=== PATIENT | male | born 1950 | race Caucasian/White ===

== ENCOUNTER 2019-06-23 06:26 | Day surgery (SDC) | payer BC ==
[~2019-06-23 06:26] MED LIST: Buffered Lidocaine 1% SYRIN* 1 ML/SYRINGE INTRADERM ONE; Famotidine IV* 10 MG/ML 2 ML (20 mg) IV ONE; Lactated Ringers 1000 ML Bag* 1,000 ML IV SCH
[2019-06-23] MEDS ORDERED: Famotidine IV* 10 MG/ML 2 ML (20 mg) ONE (07:55)
[2019-06-23] MEDS ORDERED: Buffered Lidocaine 1% SYRIN* 1 ML/SYRINGE INTRADERM ONE (07:55)
[2019-06-23] MEDS ORDERED: ceFAZolin 2 GM in NS PREMIX(*) 2 GM/100 ML BAG IVPB ONE (07:56)
[2019-06-23] MEDS ORDERED: Ketorolac INJ* 30 MG/ML 1 ML VIAL ONE (08:27)
[2019-06-23] MEDS ORDERED: Ondansetron INJ* 2 MG/ML VIAL ONE (08:27)
[2019-06-23] MEDS ORDERED: Midazolam* 1 MG/ML 5 ML VIAL (5 MG) ONE (08:27)
[2019-06-23] MEDS ORDERED: Rocuronium* 10 MG/ML VIAL ONE (08:27)
[2019-06-23] MEDS ORDERED: Propofol* 10 MG/ML 20 ML BTL ONE (08:27)
[2019-06-23] MEDS ORDERED: Lidocaine 2% PF * 5 ML VIAL ONE (08:27)
[2019-06-23] MEDS ORDERED: fentaNYL* 50 MCG/ML 5 ML VIAL (250 MCG VIAL) ONE (08:27)
[2019-06-23] MEDS ORDERED: Dexamethasone IV* 4 MG/ML 1 ML (4 MG) ONE (08:27)
[2019-06-23] MEDS ORDERED: KETAMINE HCL* 50 MG/ML 10 ML VIAL ONE (08:27)
[2019-06-23] MEDS ORDERED: Bupivacaine 0.5%* 50 ML MDV VIAL ONE (08:49)
[2019-06-23] MEDS ORDERED: fentaNYL* 50 MCG/ML 2 ML VIAL (100 MCG VIAL) IV PRN (09:00)
[2019-06-23] MEDS ORDERED: Ondansetron INJ* 2 MG/ML VIAL IV PRN (09:00)
[2019-06-23] MEDS ORDERED: oxyCODONE/Acetamin 5/325 MG* TAB PO PRN (09:00)
[2019-06-23] MEDS ORDERED: Naloxone* 0.4 MG/ML 1 ML VIAL IV PRN (09:00)
[2019-06-23] MEDS ORDERED: EPHEDrine (Pressors)* 50 MG/ML VIAL ONE (09:30)
[2019-06-23] MEDS ORDERED: Sugammadex * 500 MG/5 ML VIAL IV PUSH ONE (10:10)
[2019-06-23 12:52] VITALS: BP 112/67
--- NOTE | 2019-06-23 14:00 | OP ---
OPERATIVE REPORT: DATE OF OPERATION: 06/23/19 DATE OF : 54 SURGEON: Bertrand Jones MD PRE-OP DIAGNOSIS: Right inguinal hernia. POST-OP DIAGNOSIS: Right inguinal hernia. OPERATIVE PROCEDURE: Robotic repair of right inguinal hernia with mesh. INDICATIONS FOR PROCEDURE: Right inguinal hernia. Risks including but not limited to bleeding, infe ction, injury to intraabdominal contents including the bowel, pelvic nerves and vessels, recurrence o f the hernia all explained the patient, who seemed to understand, agreed to the procedure, and all qu estions were answered. DESCRIPTION OF PROCEDURE: The patient was taken to the operating room, placed supine. Preoperative antibiotics had been given. After the successful induction of general endotracheal anesthesia, the a bdomen was prepped and draped in sterile fashion. Time-out was performed indicating correct patient and correct procedure. A 5-mm trocar was placed in the left upper quadrant under direct visualization of the camera using a bladeless Optiview trocar. Pneumoperitoneum was achieved to 15 mmHg. Camera was placed in the abdomen. The abdomen was scanned. There was no obvious injury from trocar placeme nt. Two more 8 mm trocars, robotic were placed in the midline and right upper quadrant respectively and then the 5 mm trocar was exchanged for 8 -mm robotic trocar. These were all done under direct vi sualization of the camera. The patient was placed in slight Trendelenburg position. Only a right in guinal hernia was noted. No left inguinal hernia was noted. The mesh and suture were passed and the robot was brought in and docked. Peritoneum was taken down including a large direct hernia sac. Th e fat was removed from the femoral canal lipoma. The mesh was placed against the right hemipelvis, ProGrip right- sided mesh, covering the femoral direct and indirect spaces nicely and the peritoneum was closed using a running V-Loc suture. The abdomen was scanned. There were no obvious injuries or abnormalities noted. The pneumoperitoneum was released from the abdomen as the robot was undocked an d the trocars were removed and skin was closed with Monocryl and glue. He tolerated the procedure we ll. He was extubated and taken to Recovery in stable condition. [id number]/[facility] #: [id number]
== END 2019-06-23 13:00 | disposition home or self-care (01) ==
LOC: OR 06:26
PROVIDERS: ATTEND Surgery
DX: K40.90 Unilateral inguinal hernia, without obstruction or gangrene, not specified as recurrent (principal); E03.9 Hypothyroidism, unspecified; E78.5 Hyperlipidemia, unspecified; Z85.820 Personal history of malignant melanoma of skin; Z85.828 Personal history of other malignant neoplasm of skin; Z87.442 Personal history of urinary calculi
CPT/HCPCS: 49650; S2900; C1781; J0690; J1100; J1885; J2250; J2405; J2704; J3010; J3490